=== PATIENT | male | born 1965 | race Caucasian/White ===

== ENCOUNTER 2021-02-09 17:45 | Emergency (ER) | payer OTHER ==
[~2021-02-09] VITALS: Ht 185.4 cm; Wt 70.3 kg
--- NOTE | ~2021-02-09 | EMS ---
[address] [address] EMS Patient Care Report Name: CLIVE PRAJAPATI Room: [facility] Efrain#: [id number] Admission: 02/09/21 Attend Phys: Discharge: Date of : 65 Report #: [id number] THIS REPORT FOR: //name// Report Transmitted: 02/09/2021 18:38 EMS Care Summary RASTA MARTINEZ Incident [id number] @ 02/09/2021 17:08 Incident Location [address] [place] [address] Patient Clive prajapati Male, 55 Years 1965 Patient Address [address] [place] [address] Patient History Cancer, Unspecified, Patient Allergies , Patient Medications potassium citrate, Calcium, Iron, Atenolol, Chief Complaint Abdominal pain/discomfort Disposition Transported No Lights/[place] Reason Hemorrhage/Laceration Transported To [facility] Narrative Dispatched for sick male, arrive at business and find patient walking out if said business holding his stomach. There is obvious distension under where patient is holding his abdomen. Patient is alert to his baseline and is answering questions appropriately when asked. Patient states since this morning [address] [address] EMS Patient Care Report Name: CLIVE PRAJAPATI Room: [facility] Delvin.#: [id number] Admission: 02/09/21 Attend Phys: Discharge: Date of : 65 Report #: [id number] around 0800 he has been throwing about fecal matter along with passing blood. While patient was out today, his stomach all of a sudden became distend. He had just recently had his intestine [place] back [place] home [place] almost four weeks ago. He has had 15 different abdominal surgeries due to colon cancer. Primary assessment showed alert and oriented male, with obvious distension in lower abdomen, and a strong left radial pulse. Patient was walking towards EMS as we arrived, he was able to climb into ambulance with minimal assistance. Fasten all safety belts and placed patient on the monitor. Obtained secondary assessment and completed physical assessment. Patient denied my suggestion of starting an IV, due to being a hard stick. And he was allergic to all pain control on the truck anyways. Began transport to [place]. En route patient still had the pain, that was made worse with all the movement. His vitals remained within normal limits. Gave radio report to facility. Arrived and unloaded patient without incident, went to ER room ten. Patient wanted to stand pivot to hospital bed. Gave report to nurse and doctor. Obtained all needed signatures. Initial Vitals @17:20Pain: 03/04, @17:49Pain: 03/04, @17:17P: 84,R: 18,BP: 114/79, @17:32P: 72,R: 18,BP: 111/71, @17:17GCS: 15, @17:32GCS: 15, @17:28 Assessments @17:14MENTAL:SKIN:HEENT:LUNG SOUNDS:ABDOMEN:PELVIS//GI:EXTREMITIES:PULSE:NEURO: Impression Acute abdomen Timeline 17:08,Call Received 17:08,Dispatch Notified 17:08,Psap Call 17:08,Dispatched 17:08,En Route 17:12,On Scene 17:14,At Patient 17:17,BP: 114/79 M,PULSE: 84,RR: 18 R,SPO2: Ox,ETCO2: ,BG: ,PAIN: ,GCS: , 17:17,BP: / M,PULSE: ,RR: R,SPO2: Ox,ETCO2: ,BG: ,PAIN: ,GCS: 15, 17:20,BP: / M,PULSE: ,RR: R,SPO2: Ox,ETCO2: ,BG: ,PAIN: 9,GCS: , 17:26,[place] [address] EMS Patient Care Report Name: CLIVE PRAJAPATI Room: [facility] Efrain#: [id number] Admission: 02/09/21 Attend Phys: Discharge: Date of : 65 Report #: [id number] 17:28,BP: / M,PULSE: ,RR: R,SPO2: Ox,ETCO2: ,BG: ,PAIN: ,GCS: , 17:32,BP: 111/71 M,PULSE: 72,RR: 18 R,SPO2: Ox,ETCO2: ,BG: ,PAIN: ,GCS: , 17:32,BP: / M,PULSE: ,RR: R,SPO2: Ox,ETCO2: ,BG: ,PAIN: ,GCS: 15, 17:42,At Destination 17:49,BP: / M,PULSE: ,RR: R,SPO2: Ox,ETCO2: ,BG: ,PAIN: 9,GCS: , 18:05,Call Closed Disclaimer v1.1 Copyright 2020 [employer] This EMS Care Summary contains data elements from the applicable legal record (which may be displayed differently). It is designed to provide pertinent information for the following purposes: continuity of care, clinical quality, and state data reporting. The complete legal record is available to ED staff and administrators of the receiving hospital in [employer] Patient Tracker. All data is provided "as is."
[2021-02-09 19:29] LABS: ABSOLUTE EOSINOPHILS 0.1 thou/uL (0.0-0.7); ABSOLUTE LYMPHOCYTES 0.3 thou/uL (0.8-5.3); ABSOLUTE MONOCYTES 0.7 thou/uL (0.0-1.2); ABSOLUTE NEUTROPHILS 3.2 thou/uL (1.6-8.1); BASOPHILS 0.3 %; EOSINOPHILS 1.8 %; HEMATOCRIT 23.1 % (42.0-52.0); HEMOGLOBIN 7.5 gm/dL (14.0-18.0); LYMPHOCYTES 7.3 %; MCH 25.5 pg (26.0-34.0); MCHC 32.3 g/dL (28.0-37.0); MCV 78.9 fL (80.0-100.0); MONOCYTES 16.4 %; NUCLEATED RBCS 0 /100WBC; PLATELET COUNT* 159 thou/uL (150-400); POLYS 74.2 %; RBC 2.93 mil/uL (4.50-6.00); RDW-CV 21.6 % (10.5-14.5); WBC 4.3 thou/uL (4.0-11.0)
[2021-02-09 19:36] LABS: CALCIUM 7.5 mg/dL (8.5-10.1); CREATININE 0.9 mg/dL (0.6-1.3); POTASSIUM 3.8 mmol/L (3.5-5.1)
[2021-02-09 19:40] LABS: TOTAL BILIRUBIN 0.3 mg/dL (<0.1-1.0); TOTAL PROTEIN 5.9 g/dL (6.4-8.2)
[2021-02-09 20:23] LABS: PLATELET ESTIMATE ADEQUATE
[2021-02-09 20:24] LABS: ANISOCYTOSIS 2+; HYPOCHROMASIA 1+; MICROCYTES Occasional
--- NOTE | 2021-02-10 07:52 | EKG ---
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 : 1965 Requested By: Gordon Montanez Order Number: [id number] MD: Ulysses Quintero Measurements Intervals [place] Rate: 72 P: 75 CO: 131 QRS: 86 QRSD: 121 T: 41 QT: 387 QTc: 424 Interpretive Statements Sinus rhythm Right bundle branch block Minimal ST elevation, anterior leads, early repolarization No previous ECG available for comparison Electronically Signed On 02-10-2021 7:52:02 CDT by Ulysses Quintero [email or web address] <ELECTRONICALLY SIGNED> By: Ulysses Quintero MD, [facility] 02/10/21 0752 1820 182 Ulysses Quintero MD, [facility] /EPI
== END 2021-02-09 20:45 | disposition left against medical advice (07) ==
LOC: M.ERS 17:45
PROVIDERS: Emergency Medicine
DX: R14.0 Abdominal distension (gaseous) (principal); R11.10 Vomiting, unspecified; Z88.6 Allergy status to analgesic agent; Z88.5 Allergy status to narcotic agent; Z85.118 Personal history of other malignant neoplasm of bronchus and lung; Z85.038 Personal history of other malignant neoplasm of large intestine; Z85.47 Personal history of malignant neoplasm of testis